=== PATIENT | male | born 1980 | race Caucasian/White ===

== ENCOUNTER 2016-08-19 01:08 | Emergency (ER) | payer OTHER ==
[~2016-08-19 01:08] MED LIST: ACETAMINOPHEN325 MG PO; ALBUTEROL17 GM INH; BENADRYL PO; CIPRO PO; CLINDAMYCIN HC300 MG PO; ERYTHROMYCIN O3.5 GM OD; KEPPRA1000 MG PO; KEPPRA500 M1; KEPPRA500 M1 PO; KEPPRA500 MG PO; KEPPRA750 MG PO; LEVETIRACETAM500 MG PO; LORTAB 5/500 TA1 TA1 PO; LORTAB 7.5-5001 TAB PO; OMNICEF300 M1 PO; PHENERGAN25 M1 DOB; PREDNISONE PO; QUETIAPINE FUM200 MG PO; TEGRETOL; TEGRETOL PO; TEGRETOL XR PO; TEGRETOL XR200 M1 PO; TEGRETOL XR200 MG PO; TYLENOL #3 PO; VEETIDS 500500 M1 PO; VENLAFAXINE HC150 MG PO
== END 2016-08-19 01:27 | disposition home or self-care (01) ==
LOC: SED 01:08
DX: S61.210A Laceration without foreign body of right index finger without damage to nail, initial encounter (principal); F41.9 Anxiety disorder, unspecified; F17.200 Nicotine dependence, unspecified, uncomplicated; Z79.899 Other long term (current) drug therapy; Z88.1 Allergy status to other antibiotic agents; W25.XXXA Contact with sharp glass, initial encounter; Y93.G1 Activity, food preparation and clean up; Y92.009 Unspecified place in unspecified non-institutional (private) residence as the place of occurrence of the external cause
CPT/HCPCS: 12001; 99283